=== PATIENT | female | born 1945 | race African-American/Black ===

== ENCOUNTER 2016-12-01 11:26 | Outpatient (CLI) ==
[2013-03-14 09:24] VITALS: TEMP 97
[2016-12-01 12:47] LABS: BASOPHILS % (AUTO) 0.4 % (0.0-3.0); EOSINOPHILS # (AUTO) 0.1 K/ul (0.0-0.7); EOSINOPHILS % (AUTO) 1.6 % (0.0-7.0); HEMATOCRIT 41.9 % (37.0-47.0); HEMOGLOBIN 13.7 g/dl (12.0-16.0); IMMATURE GRANULOCYTE % (AUTO) 0.2 % (0.0-5.0); LYMPHOCYTES # (AUTO) 1.2 K/uL (0.60-3.4); LYMPHOCYTES % (AUTO) 23.7 (10.0-50.0); MEAN CORPUSCULAR HEMOGLOBIN 29.2 pg (27.0-31.0); MEAN CORPUSCULAR HGB CONC 32.7 (31.8-35.4); MEAN CORPUSCULAR VOLUME 89.3 fl (81.0-99.0); MONOCYTES # (AUTO) 0.8 K/uL (0.4-2.0); MONOCYTES % (AUTO) 16.6 (0-10); NEUTROPHILS # (AUTO) 2.9 K/ul (2.0-6.9); NEUTROPHILS % (AUTO) 57.5; PLATELET COUNT 240 10^3/uL (140-440); RED BLOOD COUNT 4.69 10^6/ul (4.20-5.40); WHITE BLOOD COUNT 5.06 K/ul (4.6-10.2)
[2016-12-01 13:28] LABS: ALBUMIN 3.7 g/dL (3.4-5.0); ALBUMIN/GLOBULIN RATIO 0.9; ANION GAP 15.2; BILIRUBIN,TOTAL 0.67 mg/dL (0.00-1.20); BUN/CREATININE RATIO 14.94; CALCIUM 9.8 mg/dL (8.2-10.2); CHOL/HDL RATIO 3.7 (4.5-5.5); CREATININE 0.87 mg/dL (0.60-1.30); POTASSIUM 4.2 mmol/L (3.5-5.10); TOTAL PROTEIN 7.8 g/dL (5.8-8.1)
== END 2016-12-01 11:27 | disposition home or self-care (01) ==
LOC: LAB 11:26
PROVIDERS: ATTEND Emergency Medicine
DX: E11.9 Type 2 diabetes mellitus without complications (principal); I10 Essential (primary) hypertension; R29.6 Repeated falls; E11.42 Type 2 diabetes mellitus with diabetic polyneuropathy
CPT/HCPCS: 36415; 80053; 80061; 83036; 84443; 85025

== ENCOUNTER 2017-04-15 12:42 | Inpatient (IN) | payer OTHER ==
[2017-04-15 14:05] VITALS: BMI 27.1
[2017-04-15 15:54] LABS: BASOPHILS % (AUTO) 0.2 % (0.0-3.0); EOSINOPHILS # (AUTO) 0.1 K/ul (0.0-0.7); EOSINOPHILS % (AUTO) 2.2 % (0.0-7.0); HEMATOCRIT 38.5 % (37.0-47.0); HEMOGLOBIN 12.7 g/dl (12.0-16.0); IMMATURE GRANULOCYTE % (AUTO) 0.2 % (0.0-5.0); LYMPHOCYTES # (AUTO) 1.1 K/uL (0.60-3.4); LYMPHOCYTES % (AUTO) 23.3 (10.0-50.0); MEAN CORPUSCULAR HEMOGLOBIN 29.5 pg (27.0-31.0); MEAN CORPUSCULAR VOLUME 89.3 fl (81.0-99.0); MONOCYTES # (AUTO) 0.7 K/uL (0.4-2.0); MONOCYTES % (AUTO) 15.1 (0-10); NEUTROPHILS # (AUTO) 2.7 K/ul (2.0-6.9); PLATELET COUNT 239 10^3/uL (140-440); RED BLOOD COUNT 4.31 10^6/ul (4.20-5.40); WHITE BLOOD COUNT 4.63 K/ul (4.6-10.2)
[2017-04-15] MEDS ORDERED: NON-FORMULARY MEDICATION (Meclizine Hcl [Meclizine Hcl] 12.5 MG) PO PRN ×2 (16:00→16:22)
[2017-04-15] MEDS: SODIUM CHLORIDE 1,000 ML IV SCH (16:01)
[2017-04-15 16:15] LABS: ALBUMIN 3.3 g/dL (3.4-5.0); ALBUMIN/GLOBULIN RATIO 0.73; ANION GAP 18.2; BILIRUBIN,TOTAL 0.25 mg/dL (0.00-1.20); BUN/CREATININE RATIO 13.58; CREATININE 0.81 mg/dL (0.60-1.30); POTASSIUM 4.2 mmol/L (3.5-5.10); TOTAL PROTEIN 7.8 g/dL (5.8-8.1)
--- NOTE | 2017-04-15 16:21 | DI ---
EXAM: Chest one view, frontal view only. HISTORY: Bilateral leg weakness. COMPARISON: 01/27/2012. FINDINGS: The heart size is normal. Atherosclerotic calcifications are present. There is no pulmon phong vascular congestion. The lungs are clear. No pleural effusion or pneumothorax is seen. No acu te osseous abnormality is identified. IMPRESSION: No acute cardiopulmonary process.
[2017-04-15] MEDS: HUMULIN R SUBCUT PRN (17:37)
[2017-04-15 19:26] LABS: BILIRUBIN,URINE Negative (NEGATIVE); KETONES,URINE Negative (NEGATIVE); LEUKOCYTE ESTERASE ,URINE Negative (NEGATIVE); NITRITE,URINE Negative (NEGATIVE); PROTEIN,URINE Negative (NEGATIVE); URINE, BLOOD Negative (NEGATIVE)
[2017-04-15 19:27] LABS: ADD URINE MICROSCOPIC NO
[2017-04-15] MEDS: DALFAMPRIDINE 10 MG PO SCH (20:20)
[2017-04-15] MEDS: DIMETHYL FUMARATE 240 MG PO SCH (20:20)
[2017-04-15] MEDS: NON-FORMULARY MEDICATION (Fluticasone Propionate [Flonase Allergy Relief] 2 SPRAY) NS PRN (20:21)
[2017-04-15] MEDS ORDERED: NON-FORMULARY MEDICATION PO SCH ×44 (21:00)
[2017-04-16] MEDS ORDERED: NON-FORMULARY MEDICATION (Metformin Hcl [Metformin Hcl] 500 MG) PO SCH (08:00)
[2017-04-16] MEDS: NON-FORMULARY MEDICATION (Amlodipine Besylate [Amlodipine Besylate] 5 MG) PO SCH (08:47)
[2017-04-16] MEDS: NON-FORMULARY MEDICATION (Atorvastatin Calcium [Lipitor] 40 MG) PO SCH ×22 (08:47)
[2017-04-16] MEDS: METFORMIN HCL 250 MG PO SCH (08:47)
[2017-04-16] MEDS: DIMETHYL FUMARATE 240 MG PO SCH ×2 (08:48→21:13)
[2017-04-16] MEDS: POTASSIUM CHLORIDE 8 MEQ PO SCH (08:48)
[2017-04-16] MEDS: NON-FORMULARY MEDICATION (Lisinopril [Lisinopril] 5 MG) PO SCH (08:48)
[2017-04-16] MEDS: DALFAMPRIDINE 10 MG PO SCH ×2 (08:48→21:13)
[2017-04-16] MEDS: NON-FORMULARY MEDICATION (Clopidogrel Bisulfate [Plavix] 75 MG) PO SCH ×22 (08:48)
[2017-04-16] MEDS: NON-FORMULARY MEDICATION (Meclizine Hcl [Meclizine Hcl] 12.5 MG) PO SCH ×2 (09:00→21:13)
[2017-04-16] MEDS: HUMULIN R SUBCUT PRN (11:28)
[2017-04-16] MEDS: SODIUM CHLORIDE 1,000 ML IV SCH ×2 (15:50→17:05)
[2017-04-16] MEDS ORDERED: LOVENOX SUBCUT SCH (20:30)
--- NOTE | 2017-04-16 20:57 | CT ---
EXAM: CT scan lumbar spine HISTORY: Back pain COMPARISON: MRI lumbar spine 12/03/2015 FINDINGS: Contiguous axial images were obtained through the lumbar spine utilizing 3-mm collimation . Sagittal and coronal reconstructions were imaged and reviewed.. There is moderate lumbar levoscol iosis. The vertebral bodies normal height and alignment.. At L3-L4 there is a concentric disc bulg e with ligamentum flavum and facet hypertrophy mildly narrowing both neural foramen. Central canal is patent.. At L4-L5 there is disc bulge with associated facet arthropathy narrowing both neural fo ramen right greater than left. Central canal is patent. At. L5-S1 there is disc bulge with moderat e facet arthropathy with mild left neural foraminal narrowing.. There is a right-sided iliac artery stent extends into the right external and internal iliacs. IMPRESSION: No acute findings. Multilevel disc bulge with facet arthropathy narrowing the neural foramen as described.
[2017-04-16] MEDS ORDERED: LOVENOX ONE (21:10)
[2017-04-17] MEDS ORDERED: NON-FORMULARY MEDICATION (Alendronate Sodium [Fosamax] 70 MG) PO SCH ×21 (06:30)
[2017-04-17] MEDS ORDERED: ERGOCALCIFEROL 50000 UNIT PO SCH ×21 (09:00)
[2017-04-17] MEDS: DALFAMPRIDINE 10 MG PO SCH ×2 (10:37→20:56)
[2017-04-17] MEDS: NON-FORMULARY MEDICATION (Amlodipine Besylate [Amlodipine Besylate] 5 MG) PO SCH (10:38)
[2017-04-17] MEDS: DIMETHYL FUMARATE 240 MG PO SCH ×2 (10:38→20:57)
[2017-04-17] MEDS: POTASSIUM CHLORIDE 8 MEQ PO SCH (10:38)
[2017-04-17] MEDS: NON-FORMULARY MEDICATION (Atorvastatin Calcium [Lipitor] 40 MG) PO SCH ×22 (10:38)
[2017-04-17] MEDS: NON-FORMULARY MEDICATION (Clopidogrel Bisulfate [Plavix] 75 MG) PO SCH ×22 (10:38)
[2017-04-17] MEDS: NON-FORMULARY MEDICATION (Meclizine Hcl [Meclizine Hcl] 12.5 MG) PO SCH (10:39)
[2017-04-17] MEDS: NON-FORMULARY MEDICATION (Lisinopril [Lisinopril] 5 MG) PO SCH (10:39)
[2017-04-17] MEDS: METFORMIN HCL 250 MG PO SCH (10:39)
[2017-04-17] MEDS: NON-FORMULARY MEDICATION (Fluticasone Propionate [Flonase Allergy Relief] 2 SPRAY) NS PRN (10:44)
[2017-04-17] MEDS ORDERED: FLONASE NAS PRN (11:00)
[2017-04-17] MEDS: HUMULIN R SUBCUT PRN (11:18)
[2017-04-17] MEDS: SODIUM CHLORIDE 1,000 ML IV SCH (18:48)
[2017-04-17] MEDS: NORCO 5-325 PO SCH (20:56)
[2017-04-17] MEDS: ANTIVERT PO SCH (20:57)
[2017-04-17] MEDS: LOVENOX SUBCUT SCH (20:58)
[2017-04-18] MEDS: DIMETHYL FUMARATE 240 MG PO SCH ×2 (08:45→20:31)
[2017-04-18] MEDS: DALFAMPRIDINE 10 MG PO SCH ×2 (08:45→20:31)
[2017-04-18] MEDS: KLOR-CON 8 MEQ PO SCH (08:46)
[2017-04-18] MEDS: ANTIVERT PO SCH ×2 (08:46→20:30)
[2017-04-18] MEDS: LIPITOR PO SCH (08:46)
[2017-04-18] MEDS: ZESTRIL PO SCH (08:47)
[2017-04-18] MEDS: NORVASC PO SCH (08:47)
[2017-04-18] MEDS: ASPIRIN EC PO SCH (08:47)
[2017-04-18] MEDS: NORCO 5-325 PO SCH ×2 (08:47→20:30)
[2017-04-18] MEDS: PLAVIX PO SCH (08:48)
[2017-04-18] MEDS: GLUCOPHAGE PO SCH (08:48)
[2017-04-18] MEDS ORDERED: VITAMIN B-12 IM ONE (09:00)
[2017-04-18] MEDS: HUMULIN R SUBCUT PRN (11:56)
--- NOTE | 2017-04-18 14:09 | PN ---
DATE OF SERVICE: 04/16/17 SUBJECTIVE: This is a 71-year-old female admitted yesterday from the clinic for frequent falls, weakness in the lower extremity and worsening of MS symptoms. The patient says today that she still feels weak, she doesn't think she can stand but she can move the legs fine but no other problems and has some lower back pain. REVIEW OF SYSTEMS: CONSTITUTIONAL: Weakness, No fever, no chills. HEENT: Normal. ENDOCRINE: No weight gain, no weight loss. CVS: No angina symptoms. No CHF symptoms. No palpitations. No atypical chest pain for CAD. No shortness of breath. No PND, no orthopnea. RESPIRATORY: No cough, no hemoptysis. GI: No nausea, no vomiting. No abdominal pain. : No hematuria. No polyuria. MUSCULOSKELETAL:. Lower back pain. PSYCHIATRIC: Not anxious. No depression. No suicidal thoughts. No homicidal thoughts. SKIN: Intact. No rash. PHYSICAL EXAMINATION: V/S: BP 138/76, respiratory rate 16, heart rate 71, saturation 96% on room air. HEENT: Normocephalic, atraumatic. Mucosa dry. NECK: Supple. No JVD, no carotid bruit. No lymphadenopathy. LUNGS: Clear to auscultation. No rales or rhonchi. HEART: S1, S2 normal. No S3. No murmur, gallop or regurgitation. ABDOMEN: Soft, nontender. Bowel sounds active. No rigidity. No rebound or guarding. No CVA tenderness. EXTREMITIES: Lower extremity 4/5 only. Lower back paraspinal muscle tenderness is present. No clubbing, cyanosis or pedal edema. MUSCULOSKELETAL: No joint swelling. NEUROLOGIC: Awake, alert, oriented times three. No focal deficit. LYMPHATIC: No lymph nodes palpable. SKIN: Intact. LAB DATA: White count 4.63, hemoglobin 12.7, hematocrit 38.5, platelet count 239. Sodium 142, potassium 4.2, chloride 108, bicarb 25, BUN 11, creatinine 0.81, glucose 151. ASSESSMENT: 1. FREQUENT FALLS WITH LOWER EXTREMITY WEAKNESS 2. LOWER BACK PAIN, RULE OUT ANY FRACTURE 3. WORSENING MS 4. HISTORY OF HYPERTENSION 5. DYSLIPIDEMIA 6. DIABETES PLAN: 1. Will go ahead and get a CT of the lumbar spine. 2. Will give 4 cc Decadron. 3. Bed rest for now in view of frequent and recurrent falls. 4. Will start the patient on DVT prophylaxis with Lovenox. 5. Follow with the patient in daily rounds. TIME SPENT: More than 30 minutes MTDD
[2017-04-18] MEDS: SODIUM CHLORIDE 1,000 ML IV SCH (18:49)
[2017-04-18] MEDS: LOVENOX SUBCUT SCH (20:29)
[2017-04-19] MEDS: LIPITOR PO SCH (08:25)
[2017-04-19] MEDS: ANTIVERT PO SCH ×2 (08:25→21:47)
[2017-04-19] MEDS: NORVASC PO SCH (08:25)
[2017-04-19] MEDS: PLAVIX PO SCH (08:25)
[2017-04-19] MEDS: GLUCOPHAGE PO SCH (08:25)
[2017-04-19] MEDS: KLOR-CON 8 MEQ PO SCH (08:26)
[2017-04-19] MEDS: ZESTRIL PO SCH (08:26)
[2017-04-19] MEDS: DALFAMPRIDINE 10 MG PO SCH ×2 (08:26→21:45)
[2017-04-19] MEDS: NORCO 5-325 PO SCH ×2 (08:26→21:52)
[2017-04-19] MEDS: DIMETHYL FUMARATE 240 MG PO SCH ×2 (08:26→21:45)
[2017-04-19] MEDS: ASPIRIN EC PO SCH (08:26)
[2017-04-19] MEDS: COLACE PO SCH (11:50)
[2017-04-19] MEDS: HUMULIN R SUBCUT PRN ×2 (11:58→21:14)
--- NOTE | 2017-04-19 13:53 | PN ---
DATE OF SERVICE: 04/17/17 SUBJECTIVE: The patient still complains of a lot of pain with minimal activity - walking or sitting up. Weakness presenting in the lower extremities. No chest pain. No PND, no orthopnea. REVIEW OF SYSTEMS: CONSTITUTIONAL: Weakness in lower extremities. No fever, no chills. HEENT: Normal. ENDOCRINE: No weight gain, no weight loss. CVS: No angina symptoms. No CHF symptoms. No palpitations. No atypical chest pain for CAD. No shortness of breath. No PND, no orthopnea. RESPIRATORY: No cough, no hemoptysis. GI: No nausea, no vomiting. No abdominal pain. : No hematuria. No polyuria. MUSCULOSKELETAL:. Pain with minimal activity such as walking or sitting up. PSYCHIATRIC: Not anxious. No depression. No suicidal thoughts. No homicidal thoughts. SKIN: Intact. No rash. PHYSICAL EXAMINATION: V/S: BP 154/84, respiratory rate 17, heart rate 74, temperature 98.1. HEENT: Normocephalic, atraumatic. Mucosa . NECK: Supple. No JVD, no carotid bruit. No lymphadenopathy. LUNGS: Clear to auscultation. No rales or rhonchi. HEART: S1, S2 normal. No S3. No murmur, gallop or regurgitation. ABDOMEN: Soft, nontender. Bowel sounds active. No rigidity. No rebound or guarding. EXTREMITIES: No clubbing, cyanosis or pedal edema. Lower paraspinal tenderness is present and weakness in the lower extremity 4/5. MUSCULOSKELETAL: No joint swelling. NEUROLOGIC: Awake, alert, oriented times three. No focal deficit. LYMPHATIC: No lymph nodes palpable. SKIN: Intact. LABS: Sodium 146, potassium 4.8, chloride 108, bicarb 24, BUN 11, creatinine 0.81. White count 4.63, hemoglobin 12.7, hematocrit 38.5, platelet count 239. ASSESSMENT: 1. WEAKNESS AND TIREDNESS, NOT ABLE TO WALK. 2. HISTORY OF MS WITH WORSENING SYMPTOMS 3. HYPERTENSION. 4. DIABETES 5. DYSLIPIDEMIA 6. OSTEOARTHRITIS 7. DJD SPINE PLAN: 1. Will go ahead and order CT of lumbar spine. 2. Complete bedrest 3. Lincoln p.o. b.i.d. 5 mg 4. Daily I & O's 5. Will follow patient in daily rounds TIME SPENT: More than 30 minutes MTDD
--- NOTE | 2017-04-19 14:02 | PN ---
DATE OF SERVICE: 04/18/17 SUBJECTIVE: The patient is admitted with inability to walk, weakness. CT scan showed lumbar spine osteoarthritis, still unable to stand on her legs. She can stand but has a lot of weakness she complains of and worried that she is going to buckle up and fall. Otherwise, no chest pain, PND or orthopnea. No headache. No nausea or vomiting. REVIEW OF SYSTEMS: CONSTITUTIONAL: Weakness. No fever, no chills. HEENT: Normal. ENDOCRINE: No weight gain, no weight loss. CVS: No angina symptoms. No CHF symptoms. No palpitations. No atypical chest pain for CAD. No shortness of breath. No PND, no orthopnea. RESPIRATORY: No cough, no hemoptysis. GI: No nausea, no vomiting. No abdominal pain. : No hematuria. No polyuria. MUSCULOSKELETAL: Osteoarthritis of spine. Weakness and inability to stand or walk. PSYCHIATRIC: Not anxious. No depression. No suicidal thoughts. No homicidal thoughts. SKIN: Intact. No rash. PHYSICAL EXAMINATION: V/S: BP 147/82, respiratory rate 20, heart rate 80, temperature 97.8. HEENT: Normocephalic, atraumatic. Mucosa dry. NECK: Supple. No JVD, no carotid bruit. No lymphadenopathy. LUNGS: Clear to auscultation. No rales or rhonchi. HEART: S1, S2 normal. No S3. No murmur, gallop or regurgitation. ABDOMEN: Soft, nontender. Bowel sounds active. No rigidity. No rebound or guarding. No CVA tenderness. EXTREMITIES: Lower extremity weakness present. No clubbing, cyanosis or pedal edema. MUSCULOSKELETAL: No joint swelling. NEUROLOGIC: Awake, alert, oriented times three. No focal deficit. LYMPHATIC: No lymph nodes palpable. SKIN: Intact. LABS: Sodium 146, potassium 4.8, chloride 108, bicarb 24, BUN 11, creatinine 0.81. White count 4.63, hemoglobin 12.7, hematocrit 38.5, platelet count 239. ASSESSMENT: 1. LOWER EXTREMITY WEAKNESS AND INABILITY TO WALK WITH FREQUENT AND RECURRENT FALLS. 2. HISTORY OF MS WITH WORSENING SYMPTOMS. 3. HYPERTENSION. 4. DYSLIPIDEMIA. 5. DIABETES. 6. OSTEOARTHRITIS. 7. DJD SPINE. PLAN: 1. assisted evaluation as the patient is wanting to have long-term care, says she cannot be by herself at home. The patient's family is agreeable for that. 2. Continue Hydrocodone 5 mg twice a day. 3. Daily I & O's. 4. Will follow the patient in daily rounds. TIME SPENT: More than 30 minutes MTDNicole
--- NOTE | 2017-04-19 14:11 | PN ---
DATE OF SERVICE: 04/19/17 SUBJECTIVE: The patient was admitted with lower back pain, frequent falls, weakness, not able to walk. Lumbar spine CT scan showed DJD spine. The patient has progressing multiple sclerosis for which the patient sees neurologist also. The patient and family are willing to go to senior care for physical therapy, rehabilitation and we have been working on it. REVIEW OF SYSTEMS: CONSTITUTIONAL: Weakness. No fever, no chills. HEENT: Normal. ENDOCRINE: No weight gain, no weight loss. CVS: No angina symptoms. No CHF symptoms. No palpitations. No atypical chest pain for CAD. No shortness of breath. No PND, no orthopnea. RESPIRATORY: No cough, no hemoptysis. GI: No nausea, no vomiting. No abdominal pain. : No hematuria. No polyuria. MUSCULOSKELETAL: Lower back pain. PSYCHIATRIC: Not anxious. No depression. No suicidal thoughts. No homicidal thoughts. SKIN: Intact. No rash. PHYSICAL EXAMINATION: V/S: BP 136/71, respiratory rate 20, heart rate 84, temperature 96.6. HEENT: Normocephalic, atraumatic. Mucosa dry. Pallor positive. No icterus. NECK: Supple. No JVD, no carotid bruit. No lymphadenopathy. LUNGS: Clear to auscultation. No rales or rhonchi. HEART: S1, S2 normal. No S3. No murmur, gallop or regurgitation. ABDOMEN: Soft, nontender. Bowel sounds active. No rigidity. No rebound or guarding. No CVA tenderness. EXTREMITIES: Lower extremity weakness 4/5. No clubbing, cyanosis or pedal edema. MUSCULOSKELETAL: No joint swelling. NEUROLOGIC: Awake, alert, oriented times three. No focal deficit. LYMPHATIC: No lymph nodes palpable. SKIN: Intact. LAB DATA: White count 4.63, hemoglobin 12.7, hematocrit 38.5, platelet count 239. Sodium 146, potassium 4.2, chloride 108, bicarb 24, BUN 11, creatinine 0.81, glucose 151. ASSESSMENT: 1. LOWER EXTREMITY WEAKNESS WITH FREQUENT AND RECURRENT FALLS. 2. DJD SPINE WITH MULTIPLE LUMBAR DISK OSTEOARTHRITIS. 3. MULTIPLE SCLEROSIS PROGRESSING. 4. HYPERTENSION. 5. DIABETES MELLITUS. 6. DYSLIPIDEMIA. 7. OSTEOARTHRITIS. PLAN: 1. USP placement. 2. Out of bed to chair with help. 3. Accu-Cheks with coverage. 4. Lovenox for DVT prophylaxis. TIME SPENT: More than 30 minutes MTDD
[2017-04-19] MEDS: SODIUM CHLORIDE 1,000 ML IV SCH (19:30)
[2017-04-19] MEDS: LOVENOX SUBCUT SCH (21:46)
[2017-04-20 10:02] VITALS: BP 129/72; TEMP 98.2
[2017-04-20] MEDS: ASPIRIN EC PO SCH (11:04)
[2017-04-20] MEDS: GLUCOPHAGE PO SCH (11:04)
[2017-04-20] MEDS: ANTIVERT PO SCH (11:05)
[2017-04-20] MEDS: DIMETHYL FUMARATE 240 MG PO SCH (11:06)
[2017-04-20] MEDS: KLOR-CON 8 MEQ PO SCH (11:06)
[2017-04-20] MEDS: COLACE PO SCH (11:06)
[2017-04-20] MEDS: DALFAMPRIDINE 10 MG PO SCH (11:06)
[2017-04-20] MEDS: ZESTRIL PO SCH (11:07)
[2017-04-20] MEDS: LIPITOR PO SCH (11:07)
[2017-04-20] MEDS: NORVASC PO SCH (11:07)
[2017-04-20] MEDS: PLAVIX PO SCH (11:07)
[2017-04-20] MEDS: NORCO 5-325 PO SCH (11:10)
--- NOTE | 2017-04-20 12:04 | RS.OTINEVL ---
Subjective - Patient information Date of Evaluation: 04/20/17 Date of Arrival on Unit: 04/15/17 Admitted From:: Home Usual Living Arrangement: Alone Living Arrangement Comments: Pt living alone and gets around in her ground level home in a WC. Pt was transferring from to toilet with bars and having many falls. Home Environment: Level/No stairs Medical History: Diabetes Medical History Comments:: Aneurysm, MS, DMII, - Level of function Current Equipment Used at Home: wheelchair Pain Assessment - Pain Pain Score: 0 Interventions - Objective Patient Orientation: Person, Place, Situation Current Interventions: IV's Observation: Pt is a stand pivot transfer with 2 people. Maximum assist Interventions - ROM Right Upper Extremity AROM: WFL's Left Upper Extremity AROM: WFL's - Strength Right Upper Extremity Strength: Mild Weakness Left Upper Extremity Strength: Mild Weakness - Sensation Right Upper Extremity Sensation: Intact/Normal Left Upper Extremity Sensation: Intact/Normal Balance - Sitting Balance Static Sitting Balance: Poor Dynamic Sitting Balance: Poor - Standing Balance Static Standing Balance: Poor Dynamic Standing Balance: Poor - Comments Balance Assessment Comments: poor balance ADL Skills - Self Feeding Self Feeding: Independent - Grooming Grooming: Mod Assist - Bathing Bathing UE: Min Assist Bathing LE: Min Assist - Dressing Dressing UE: Min Assist Dressing LE: Min Assist - Toilet Management Toileting Management: Max Assist, 2 person assist Functional Mobility - Bed Mobility Rolling R/L: Min Assist Scooting: Min Assist Supine to Sit: Mod Assist Sit to Supine: Min Assist - Transfers Sit to Stand: Max Assist, 2 person assist Stand to Sit: Max Assist, 2 person assist Stand Pivot Transfers: Max Assist, 2 person assist - Ambulation Weight Bearing Status: FWB Assistance needed with Ambulation: Max Assist, 2 person assist - Safety Awareness Safety Awareness: Poor Additional Treatment Performed - Additional units charged ADL: 15 - Time with patient Total treatment time: 45 Activities Patient Interests:: Reading Books/Magazines, Watching Television, Puzzles/Games Patient Education Patient Education: Education of diagnosis, Home Exercise Program, Home Safety, Education of Plan of Care Teaching Recipient: Patient Teaching Methods: Discussion, Demonstration Assessment Problem List:: Decreased level of function, Requires training/education, Decreased safety/Risk of falls, Weakness Rehab Potential: Good Further Therapy Indicated?: Yes Short Term Goals - Goals GOAL 1: Pt to increase sit to stand to be Minimal assistance Goal to be met by: 04/27/17 GOAL 2: Pt to increase bed mobility to CGA. Goal to be met by: 04/27/17 GOAL 3: Pt to increase standing balance to Good- Goal to be met by: 04/27/17 [facility] Care Goals GOAL 1: Pt to increase sit to stand to CGA Goal to be met by: 04/29/17 GOAL 2: Pt to increase bed mobility to CGA. Goal to be met by: 04/29/17 GOAL 3: Pt to increase dynamic standing balance to Good+ Goal to be met by: 04/29/17 Plan Plan of Care: Therapeutic EX, Neuromuscular Re-Educ, Therapeutic Activity, Self- Care/Home Management Frequency of Treatment: 1-2 X day, as tolerated Duration of Treatment: 2 Weeks Anticipated [facility]charge Destination[facility]
[2017-04-20 12:09] LABS: BASOPHILS % (AUTO) 0.3 % (0.0-3.0); EOSINOPHILS # (AUTO) 0.1 K/ul (0.0-0.7); EOSINOPHILS % (AUTO) 1.8 % (0.0-7.0); HEMATOCRIT 37.4 % (37.0-47.0); HEMOGLOBIN 12.5 g/dl (12.0-16.0); IMMATURE GRANULOCYTE % (AUTO) 0.3 % (0.0-5.0); LYMPHOCYTES # (AUTO) 0.9 K/uL (0.60-3.4); LYMPHOCYTES % (AUTO) 23.4 (10.0-50.0); MEAN CORPUSCULAR HEMOGLOBIN 29.4 pg (27.0-31.0); MEAN CORPUSCULAR HGB CONC 33.4 (31.8-35.4); MONOCYTES # (AUTO) 0.5 K/uL (0.4-2.0); MONOCYTES % (AUTO) 13.9 (0-10); NEUTROPHILS # (AUTO) 2.4 K/ul (2.0-6.9); NEUTROPHILS % (AUTO) 60.3; PLATELET COUNT 250 10^3/uL (140-440); RED BLOOD COUNT 4.25 10^6/ul (4.20-5.40); WHITE BLOOD COUNT 3.89 K/ul (4.6-10.2)
[2017-04-20 12:21] LABS: ALBUMIN 3.2 g/dL (3.4-5.0); ALBUMIN/GLOBULIN RATIO 0.8; ANION GAP 15.9; BILIRUBIN,TOTAL 0.24 mg/dL (0.00-1.20); BUN/CREATININE RATIO 14.66; CALCIUM 9.2 mg/dL (8.2-10.2); CREATININE 0.75 mg/dL (0.60-1.30); POTASSIUM 3.9 mmol/L (3.5-5.10); TOTAL PROTEIN 7.2 g/dL (5.8-8.1)
--- NOTE | 2017-04-20 13:00 | DS ---
DATE OF SERVICE: 04/20/17 FINAL DIAGNOSIS: 1. WEAKNESS AND FREQUENT FALLS, MORE WEAKNESS IN THE LOWER EXTREMITY 2. HISTORY OF MULTIPLE SCLEROSIS WORSENING SEEN BY DR. GRAY ON AMPYRA, TREATMENT FAILURE 3. FREQUENT AND RECURRENT FALLS 4. DIABETES MELLITUS 5. HYPERTENSION 6. DYSLIPIDEMIA 7. ATAXIA 8. CHRONIC KIDNEY DISEASE 9. HISTORY OF SPINAL MENINGITIS 10 YEARS AGO 10. MYELOPATHY 11. SPINAL HEADACHE 12. HISTORY OF SECTION TIMES THREE 13. HERNIA REPAIR 14. ENDOVASCULAR REPAIR 15. RIGHT INTERNAL ILIAC ANEURYSM, REPAIR DONE BY DR. BERMEO, 01/2017 DISCHARGE INSTRUCTIONS: 1. Discharge the patient to [facility] 2. PT/OT evaluate and treat 3. Speech to evaluate and treat MEDICATIONS AT DISCHARGE: 1. Fosamax 70 mg p.o. weekly 2. Norvasc 5 mg p.o. daily 3. Aspirin 81 mg p.o. daily 4. Lipitor 40 mg p.o. daily 5. Plavix 75 mg p.o. daily 6. Lisinopril 5 mg p.o. daily 7. Meclizine 12.5 mg p.o. b.i.d. 8. Glucophage 500 mg p.o. daily 9. Potassium 80 mEq p.o. daily DIET INSTRUCTIONS: Diabetic and cardiac ACTIVITY: May participate in prison activities. High fall risk. SMOKING: N/A DISEASE SPECIFIC EDUCATION: Diabetes MS with falls and risk of fractures discussed HOSPITAL COURSE: This is a 71-year-old female with a history of chronic intermittent MS which she has been taking Ampyra treatment by Dr. Gray for a couple of months. The patient has had treatment failure with that. Signs and symptoms are gradually getting worse. The patient was recently at [facility] for right internal iliac aneurysm repair which was done by Dr. Bermeo. The patient has been having frequent falls and hurting all over, not able to walk. She came to the [facility] and because of the above symptoms, the patient was admitted to the hospital. CT of the lumbar spine done showed osteoarthritis diffuse. The patient was still weak and tired during the hospital stay and the patient's family requested long-term care and they are willing to stop the Ampyra as it was not effective even from the documentation from Dr. Gray's notes. At that time, the patient was evaluated for prison placement and will be transferred there and will be followed by me in prison rounds. Again, patient and family are aware of the worsening of the symptoms, frequent falls and poor prognosis with the given above problems. TIME SPENT: More than 55 minutes today. The patient has requested to followup at [facility] to see if she is elgible for clinical trial but the family is not interested in that at the given time. MTDD
[2017-04-21] MEDS ORDERED: NON-FORMULARY MEDICATION (Cholecalciferol (Vitamin D3) [Vitamin D3] 5,000 UNIT) PO SCH ×22 (09:00)
[2017-04-24] MEDS ORDERED: FOSAMAX PO SCH (06:30)
[2017-04-24] MEDS ORDERED: DRISDOL PO SCH (09:00)
== END 2017-04-20 13:45 | disposition home or self-care (01) | DRG 556 ==
LOC: INTOOBSV 12:42 → SCU 12:42 → OBSVTOIN 04-16 21:00 → MEDSURG B 04-18 21:35
PROVIDERS: ADMIT Emergency Medicine; ATTEND Emergency Medicine
DX: M62.81 Muscle weakness (generalized) (principal); G95.9 Disease of spinal cord, unspecified; R27.0 Ataxia, unspecified; R29.6 Repeated falls; G35 Multiple sclerosis; E11.9 Type 2 diabetes mellitus without complications; I10 Essential (primary) hypertension; E78.5 Hyperlipidemia, unspecified; I12.9 Hypertensive chronic kidney disease with stage 1 through stage 4 chronic kidney disease, or unspecified chronic kidney disease; N18.9 Chronic kidney disease, unspecified; M54.5 Low back pain; M47.9 Spondylosis, unspecified; Z98.890 Other specified postprocedural states; Z79.84 Long term (current) use of oral hypoglycemic drugs; Z79.01 Long term (current) use of anticoagulants; Z79.899 Other long term (current) drug therapy
CPT/HCPCS: 36415; 80053; 81001; 82962; 85025